=== PATIENT | female | born 1950 | race Caucasian/White ===

== ENCOUNTER → 2019-05-09 | Outpatient (CLI) | payer OTHER | END | disposition home or self-care (01) | LOC: RAH 08:32 | PROVIDERS: ATTEND Family Medicine | DX: Z13.6 Encounter for screening for cardiovascular disorders (principal); K76.89 Other specified diseases of liver | CPT/HCPCS: 75571 ==

== ENCOUNTER → 2019-08-08 | Outpatient (CLI) | payer MEDICARE ==
[~2019-08-08] MED LIST: ASPI-1005 PO; ASPI-891 PO; FURO20TA6 PO; HYDR12.54 PO; LEVO75 PO; LOSA100T58 PO; METO-408 PO; METO25 PO; ROSU20TA31 PO; TRAM50TA4 PO
== END | disposition home or self-care (01) ==
LOC: SHCH 15:28
PROVIDERS: ATTEND Internal Medicine Cardiovascular Disease
DX: R01.1 Cardiac murmur, unspecified (principal)
CPT/HCPCS: 93306

== ENCOUNTER → 2019-08-15 | Outpatient (CLI) | payer MEDICARE | END | disposition home or self-care (01) | LOC: SHCH 13:35 | PROVIDERS: ATTEND Internal Medicine Cardiovascular Disease | DX: R09.89 Other specified symptoms and signs involving the circulatory and respiratory systems (principal) | CPT/HCPCS: 93880; 93925 ==

== ENCOUNTER → 2019-08-16 | Outpatient (CLI) | payer MEDICARE ==
[~2019-08-16] MED LIST changes: -ASPI-1005 PO; -ASPI-891 PO; -FURO20TA6 PO; -HYDR12.54 PO; -LEVO75 PO; -LOSA100T58 PO; -METO-408 PO; -METO25 PO; +REGADENOSON 0.4 MG/5 ML PF SYG IVP SCH; -ROSU20TA31 PO; -TRAM50TA4 PO
== END | disposition home or self-care (01) ==
LOC: SHCH 09:03
PROVIDERS: ATTEND Internal Medicine Cardiovascular Disease
DX: I10 Essential (primary) hypertension (principal); R01.1 Cardiac murmur, unspecified; I51.7 Cardiomegaly; R09.89 Other specified symptoms and signs involving the circulatory and respiratory systems; R94.31 Abnormal electrocardiogram [ECG] [EKG]
CPT/HCPCS: 78452; 93017; 96374; A9500 ×2; J2785

== ENCOUNTER 2019-09-03 09:34 | Day surgery (SDC) | payer MEDICARE ==
[2019-09-03] VITALS (9 sets, daily range): BP systolic 100–128; BP diastolic 68–75
[2019-09-03 10:35] LABS: BASOPHILS % (AUTO) 0.6 % (0.0-5.0); EOSINOPHILS % (AUTO) 2.4 % (0.0-8.0); HEMATOCRIT 33.9 % (36-48); LYMPHOCYTES % (AUTO) 29.8 % (21.0-51.0); MEAN CORPUSCULAR HEMOGLOBIN 29.9 pg (27.0-33.0); MEAN CORPUSCULAR HGB CONC 32.2 g/dL (32.0-36.0); MEAN CORPUSCULAR VOLUME 92.9 fL (79-99); NEUTROPHILS % (AUTO) 59.8 % (40.0-77.0); PLATELET COUNT (AUTO) 221 K/uL (130-400); RED BLOOD CELL COUNT(AUTO) 3.65 MIL/uL (4.00-5.50); RED CELL DISTRIBUTION WIDTH 12.7 % (11.0-15.5); WHITE BLOOD COUNT (AUTO) 5.4 K/uL (4.8-10.8)
[2019-09-03 10:39] LABS: APPEARANCE,URINE Cloudy (CLEAR); BILIRUBIN,URINE Negative (NEGATIVE); COLOR,URINE Yellow (YELLOW); GLUCOSE, URINE (UA) Negative (NEGATIVE); KETONES,URINE Trace mg/dL (NEGATIVE); LEUKOCYTE ESTERASE ,URINE Large (NEGATIVE); NITRATE,URINE Negative (NEGATIVE); OCCULT BLOOD,URINE Negative (NEGATIVE); PROTEIN,URINE Negative (NEGATIVE)
[2019-09-03 10:45] LABS: CREATININE 1.3 mg/dL (0.5-1.5); POTASSIUM 3.9 mmol/L (3.5-5.1); PROTHROMBIN TIME 10.8 SEC (9.6-11.6)
[2019-09-03] MEDS ORDERED: SODIUM BICARB 50MEQ 50ML VIAL ONE (11:05)
[2019-09-03] MEDS ORDERED: MIDAZOLAM HCL 1 MG/ML 2ML VIAL ONE (11:06)
[2019-09-03] MEDS ORDERED: MEPERIDINE-PF 25 MG/ML SYG ONE (11:06)
[2019-09-03] MEDS ORDERED: IOHEXOL 350 MG/ML 100ML INFUS..BTL IV ONE (11:06)
[2019-09-03] MEDS ORDERED: LIDOCAINE HCL 2% 20ML ONE (11:06)
[2019-09-03] MEDS ORDERED: HEPARIN SODIUM 1000UNIT/ML 10ML VIAL ONE (11:06)
[2019-09-03 11:09] LABS: BACTERIA,URINE Few /HPF (None Seen); RBC,URINE 0-1 /HPF (0-1); SQUAMOUS EPITHELIAL CELL,UR Moderate /HPF (0-2)
[2019-09-03] MEDS ORDERED: NITROGLYCERIN 2 MG/VIAL VIAL IV ONE (12:22)
[2019-09-03] MEDS ORDERED: IODIXANOL 320 MG/ML 100 ML VIAL ONE (12:24)
[2019-09-03] MEDS ORDERED: SODIUM CHLORIDE 0.9% 1000ML 1,000 ML IV SCH (12:58)
[2019-09-03] MEDS ORDERED: LEVO75 PO (14:02)
[2019-09-03] MEDS ORDERED: LOSA100T58 PO (14:03)
[2019-09-03] MEDS ORDERED: ROSU20TA31 PO (14:06)
[2019-09-03] MEDS ORDERED: HYDR12.54 PO (14:07)
[2019-09-03] MEDS ORDERED: METO-408 PO (14:10)
[2019-09-03] MEDS ORDERED: ASPI-1005 PO (14:11)
--- NOTE | 2019-09-03 16:55 | NUR ---
RECEIVED REPORT FROM DANYEL RN, PT RESTING FLAT IN BED SUPINE, 2 RAILS UP. NO ACTIVE BLEEDING OR HEMATOMA NOTED TO RT GROIN. PULSES PRESENT BILATERAL LOWER FEET WITH DOPPLER . VITALS IN RANGE, PT STABLE.
--- NOTE | 2019-09-03 18:00 | NUR ---
PT STABLE, NO DISTRESS. RT GROIN DRESSING D/I. NO ACTIVE BLEEDING OR HEMATOMA. INSTRUCTION GIVEN TO PT SPOUSE , BOTH VERBALIZED UNDERSTANDING. PT DRESSED WITH ASSISTANCE. IV D/C, PT TAKEN TO CAR IN WHEELCHAIR, DRIVEN HOME BY .
== END 2019-09-03 18:00 | disposition home or self-care (01) ==
LOC: DAH 09:34
PROVIDERS: ATTEND Internal Medicine Cardiovascular Disease
DX: I25.10 Atherosclerotic heart disease of native coronary artery without angina pectoris (principal); I44.7 Left bundle-branch block, unspecified; I34.0 Nonrheumatic mitral (valve) insufficiency; I10 Essential (primary) hypertension; E78.5 Hyperlipidemia, unspecified; E03.9 Hypothyroidism, unspecified; Z90.710 Acquired absence of both cervix and uterus; Z90.89 Acquired absence of other organs; Z79.899 Other long term (current) drug therapy; Z79.01 Long term (current) use of anticoagulants
CPT/HCPCS: 36415; 71045; 80048; 81001; 85025; 85610; 85730; 87088; 93005; 93458; A4215; A4216; A4221; A4222; A4223 ×3; A4335; A4606; A4663; C1760; C1894; J1644; J3490 ×3; Q9965; Q9967 ×2; J2175; J2250

== ENCOUNTER 2019-09-11 08:00 | Inpatient (IN) | payer MEDICARE ==
[2019-09-10 12:38] LABS: BASOPHILS % (AUTO) 0.5 % (0.0-5.0); EOSINOPHILS % (AUTO) 2.5 % (0.0-8.0); HEMATOCRIT 33.6 % (36-48); LYMPHOCYTES % (AUTO) 28.1 % (21.0-51.0); MEAN CORPUSCULAR HEMOGLOBIN 29.8 pg (27.0-33.0); MEAN CORPUSCULAR HGB CONC 32.1 g/dL (32.0-36.0); MEAN CORPUSCULAR VOLUME 92.6 fL (79-99); MONOCYTES % (AUTO) 7.4 % (3.0-13.0); NEUTROPHILS % (AUTO) 61.2 % (40.0-77.0); PLATELET COUNT (AUTO) 209 K/uL (130-400); RED BLOOD CELL COUNT(AUTO) 3.63 MIL/uL (4.00-5.50); RED CELL DISTRIBUTION WIDTH 12.5 % (11.0-15.5)
[2019-09-10 12:50] LABS: INR 1.04 (0.85-1.15); PARTIAL THROMBOPLASTIN TIME 31.1 SEC (26.3-35.5); PROTHROMBIN TIME 11.2 SEC (9.6-11.6)
[2019-09-10 12:54] LABS: HEMOGLOBIN A1C 5.5 % (4.0-6.0)
[2019-09-10 12:55] LABS: ALBUMIN 3.8 g/dL (3.5-5.0); BILIRUBIN,TOTAL 0.3 mg/dL (0.2-1.0); CREATININE 1.3 mg/dL (0.5-1.5); POTASSIUM 4.1 mmol/L (3.5-5.1); TOTAL PROTEIN, SERUM 7.4 g/dL (6.0-8.3)
[2019-09-10 15:11] VITALS: BP 141/79
[~2019-09-11] VITALS: Ht 165.1 cm; Wt 92.1 kg
[~2019-09-11 08:00] MED LIST changes: +ASPI-1005 PO; +CEFAZOLIN SODIUM 1 GM VIAL IVP SCH; +HYDR12.54 PO; +LEVO75 PO; +LOSA100T58 PO; +METO-408 PO; -REGADENOSON 0.4 MG/5 ML PF SYG IVP SCH; +ROSU20TA31 PO
[2019-09-13] VITALS (21 sets, daily range): BP systolic 92–167; BP diastolic 27–93
[2019-09-13] MEDS: CEFAZOLIN SODIUM 1 GM VIAL IVP SCH ×2 (06:00→07:30)
[2019-09-13] MEDS ORDERED: SODIUM CHLORIDE 0.9% 1000ML 1,000 ML IV ONE (06:03)
[2019-09-13] MEDS ORDERED: AMINOCAPROIC ACID 15,000 MG in SODIUM CHLORIDE 0.9% 500ML 500 ML IV PRN (06:15)
[2019-09-13] MEDS ORDERED: EPINEPHRINE 10 MG in SODIUM CHLORIDE 0.9% 240 ML IV PRN (06:15)
[2019-09-13] MEDS ORDERED: NOREPINEPHRINE BITARTRATE 8 MG in DEXTROSE 5%-WATER 250 ML IV PRN (06:15)
[2019-09-13] MEDS ORDERED: PAPAVERINE HCL 30 MG/ML 2ML VIAL ONE (06:29)
[2019-09-13] MEDS ORDERED: CEFAZOLIN SODIUM 1 GM VIAL ONE (06:29)
[2019-09-13] MEDS ORDERED: NITROGLYCERIN 50 MG/D5% WATER 1 BOT ONE (06:36)
--- NOTE | 2019-09-13 06:40 | NUR ---
POTENTIAL FOR INFECTION: CLIPPED PER ORDERS OF DR. Antonio LYON PER MINOO ANTHONY, FOLLOWED BY WIPING WITH ROBIN: 2% CHLORHEXIDINE GLUCONATE CLOTH PATIENTS PRE-OP SKIN PREP.
[2019-09-13] MEDS ORDERED: ROCURONIUM 10MG/1ML SYR 10 MG/ML ML ONE ×2 (07:04→07:41)
[2019-09-13] MEDS ORDERED: SODIUM BICARB 8.4% 50ML SYRINGE ONE (07:04)
[2019-09-13] MEDS ORDERED: LIDOCAINE PF 2% 5ML ABBOJECT ONE (07:40)
[2019-09-13] MEDS ORDERED: FENTANYL CITRATE PF 50 MCG/1 ML 20ML VIAL IJ ONE (07:40)
[2019-09-13] MEDS ORDERED: HEPARIN SODIUM 1000UNIT/ML 10ML VIAL ONE ×2 (07:40→07:58)
[2019-09-13] MEDS ORDERED: PROPOFOL 10 MG/ML 20ML VIAL IV ONE (07:40)
[2019-09-13] MEDS ORDERED: ESMOLOL HCL 10 MG/ML 10 ML VIAL ONE (07:40)
[2019-09-13] MEDS ORDERED: SODIUM BICARB 50MEQ 50ML VIAL ONE (07:40)
[2019-09-13] MEDS ORDERED: PROTAMINE SULFATE 10 MG/ML 25ML VIAL IV ONE (07:40)
[2019-09-13] MEDS ORDERED: EPINEPHRINE 1 MG/ML AMPULE ONE (07:40)
[2019-09-13] MEDS ORDERED: NOREPINEPHRINE BITARTRATE 1 MG/1 ML ML IV ONE (07:40)
[2019-09-13] MEDS ORDERED: MIDAZOLAM HCL 1 MG/ML 2ML VIAL ONE (07:40)
[2019-09-13] MEDS ORDERED: AMINOCAPROIC ACID 250 MG/ML 20 ML VIAL IV ONE (07:40)
[2019-09-13] MEDS ORDERED: CEFTRIAXONE SODIUM 1 GM ONE (07:44)
[2019-09-13] MEDS ORDERED: KETAMINE HCL 50MG/ML 10ML VIAL IJ ONE (07:44)
[2019-09-13 08:22] LABS: ABG BASE EXCESS 1.9 mmol/L (-2.0-3.0); ABG HCO3 25.5 mmol/L (21.0-28.0); ABG OXYGEN SATURATION 98.8 % (95.0-99.0); ABG PCO2 36 mmHg (32-45)
[2019-09-13] MEDS ORDERED: SODIUM CHLORIDE 0.9% 500ML 500 ML IV SCH (08:28)
[2019-09-13] MEDS ORDERED: INSULIN REGULAR, HUMAN 3ML 100 UNIT in SODIUM CHLORIDE 0.9% 99 ML IV SCH ×2 (08:30)
[2019-09-13] MEDS ORDERED: AMINOCAPROIC ACID 15,000 MG in SODIUM CHLORIDE 0.9% 250 ML IV SCH (08:30)
[2019-09-13] MEDS ORDERED: ALBUMIN (HUMAN) 5% 250 ML IV PRN (08:30)
[2019-09-13] MEDS ORDERED: ACETAMINOPHEN 325 MG TAB PO PRN (08:30)
[2019-09-13] MEDS ORDERED: MORPHINE SULFATE 2 MG/ML 1ML SYG IV PRN (08:30)
[2019-09-13] MEDS ORDERED: NITROGLYCERIN 50 MG/D5% WATER 250 BOT IV SCH (08:30)
[2019-09-13] MEDS ORDERED: POTASSIUM PHOS 15 mMOL+NS250ML 250 ML IV PRN (08:30)
[2019-09-13] MEDS ORDERED: ACETAMINOPHEN 650 MG SUPPOSITORY RC PRN (08:30)
[2019-09-13] MEDS ORDERED: NOREPINEPHRINE 4MG/NS 250ML 250 ML IV PRN (08:30)
[2019-09-13] MEDS ORDERED: TRAMADOL HCL 50 MG TABLET PO PRN (08:30)
[2019-09-13] MEDS ORDERED: EPINEPHRINE 10 MG in DEXTROSE 5%-WATER 250 ML IV PRN (08:30)
[2019-09-13] MEDS ORDERED: DEXTROSE 50%-WATER 50 ML DISP.SYRIN IV PRN (08:30)
[2019-09-13] MEDS ORDERED: GLUCAGON 1MG KIT 1 MG ML IM PRN (08:30)
[2019-09-13] MEDS ORDERED: CALCIUM GLUCONATE 1 GM in SODIUM CHLORIDE 0.9% 50 ML IV PRN (08:30)
[2019-09-13] MEDS ORDERED: MORPHINE SULFATE 4 MG/1ML SYG IV PRN (08:30)
[2019-09-13] MEDS ORDERED: MAGNESIUM 2GM PREMIX 50ML 50 ML IV PRN (08:30)
[2019-09-13] MEDS ORDERED: SODIUM CHLORIDE 0.9% 10 ML VIAL IVP PRN (08:30)
[2019-09-13] MEDS ORDERED: PROPOFOL 1000 MG/100 ML 100 ML IV PRN (08:30)
[2019-09-13] MEDS ORDERED: SODIUM CHLORIDE 0.9% 1000ML 1,000 ML IV SCH (08:30)
[2019-09-13] MEDS ORDERED: ONDANSETRON HCL 4 MG/2 ML VIAL IV PRN (08:30)
[2019-09-13] MEDS: LEVOTHYROXINE 75 MCG TABLET PO SCH (09:00)
[2019-09-13] MEDS: FAMOTIDINE/PF 20 MG/2 ML VIAL IV SCH ×2 (09:00→20:53)
[2019-09-13] MEDS: ASPIRIN 81 MG EC TAB PO SCH (09:00)
[2019-09-13] MEDS ORDERED: AMIODARONE HCL 50 MG/ML 3 ML VIAL ONE (09:24)
[2019-09-13 10:15] LABS: ABG OXYGEN SATURATION 98.3 % (95.0-99.0); ABG PCO2 35 mmHg (32-45)
[2019-09-13] MEDS ORDERED: POTASSIUM CHLORIDE 20MEQ/100ML 100 ML IV ONE (10:21)
--- NOTE | 2019-09-13 11:18 | NUR ---
POST OP Received pt immediately post op. Intubated/sedated. Vent settings as recorded. Not yet responsive to stimulation. VS/hemodynamics as recorded. Received pt on IV levophed gtt @5mcg/min, epinephrine gtt @ 0.05mcg/kg/min, amicar @50ml/hr. Right IJ CVP line in use. Sternal drsg clean, dry. Chest support in use. CT's x2 patent - no evidence of air leak/SQ emphysema. CT's to 20cm suction - sanguineous drainage. Abd round, soft - absent bowel sounds. OGT to LIS - placement verified on post op CXR. F/C patent - clear yellow urine. TRACY bandage/surgical drsg to LLE clean, dry. Left radial arterial line patent. PIV to JANNY patent. Assessment completed/recorded.
[2019-09-13 11:34] LABS: ABG BASE EXCESS -3.6 mmol/L (-2.0-3.0); ABG HCO3 21.1 mmol/L (21.0-28.0); ABG OXYGEN SATURATION 98.6 % (95.0-99.0); ABG PCO2 37 mmHg (32-45)
[2019-09-13 11:34] LABS: HEMATOCRIT 30.2 % (36-48); MEAN CORPUSCULAR HEMOGLOBIN 29.6 pg (27.0-33.0); MEAN CORPUSCULAR HGB CONC 32.5 g/dL (32.0-36.0); MEAN CORPUSCULAR VOLUME 91.2 fL (79-99); RED BLOOD CELL COUNT(AUTO) 3.31 MIL/uL (4.00-5.50); RED CELL DISTRIBUTION WIDTH 12.6 % (11.0-15.5); WHITE BLOOD COUNT (AUTO) 18.7 K/uL (4.8-10.8)
[2019-09-13 11:52] LABS: INR 1.16 (0.85-1.15); PARTIAL THROMBOPLASTIN TIME 28.9 SEC (26.3-35.5); PROTHROMBIN TIME 12.5 SEC (9.6-11.6)
[2019-09-13 11:56] LABS: CREATININE 1.2 mg/dL (0.5-1.5); MAGNESIUM 1.7 mg/dL (1.80-2.40); PHOSPHORUS 3.7 mg/dL (2.5-4.9); POTASSIUM 3.4 mmol/L (3.5-5.1)
[2019-09-13] MEDS: SODIUM BICARB 50MEQ 50ML VIAL IV PRN ×4 (12:02→16:16)
[2019-09-13] MEDS: POTASSIUM CHLORIDE 20MEQ/100ML 100 ML IV PRN ×3 (12:02→16:02)
--- NOTE | 2019-09-13 12:50 | NUR ---
STATUS Arousable with verbal stimulation. Focuses and follows commands. Reoriented/reassured. Pt is in no apparent distress.
--- NOTE | 2019-09-13 13:45 | NUR ---
PATIENT AWAKE. PATIENT FOLLOWS SIMPLE COMMANDS. PATIENT ABLE TO MOVE ALL EXTREMITIES. PLAN TO START VENTILATOR WEANING TRIALS.
--- NOTE | 2019-09-13 13:55 | NUR ---
PATIENT STARTED ON VENTILATOR WEANING TRIALS. SIMV DROPPED RATE TO 6.
--- NOTE | 2019-09-13 14:05 | NUR ---
PATIENT STARTED ON CPAP 10/.5 40%. TOLERATING WELL.
--- NOTE | 2019-09-13 14:20 | NUR ---
CPAP 8/5 40%. TOLERATING WELL.
[2019-09-13 14:31] LABS: ABG BASE EXCESS -0.3 mmol/L (-2.0-3.0); ABG HCO3 24.4 mmol/L (21.0-28.0); ABG OXYGEN SATURATION 97.4 % (95.0-99.0); ABG PCO2 40 mmHg (32-45)
--- NOTE | 2019-09-13 14:40 | NUR ---
PATIENT EXTUBATED AFTER SUCCESSFUL VENTILATOR WEANING TRIALS. PATIENT ON AEROSOL MASK 40%. TOLERATING WELL.
[2019-09-13] MEDS: CEFAZOLIN SODIUM 1 GM VIAL IV SCH ×2 (14:58→20:54)
[2019-09-13 16:11] LABS: ABG HCO3 23.4 mmol/L (21.0-28.0); ABG PCO2 47 mmHg (32-45)
[2019-09-13 16:18] LABS: HEMATOCRIT 30.1 % (36-48); MEAN CORPUSCULAR HEMOGLOBIN 29.5 pg (27.0-33.0); MEAN CORPUSCULAR HGB CONC 32.2 g/dL (32.0-36.0); MEAN CORPUSCULAR VOLUME 91.5 fL (79-99); PLATELET COUNT (AUTO) 257 K/uL (130-400); RED BLOOD CELL COUNT(AUTO) 3.29 MIL/uL (4.00-5.50); RED CELL DISTRIBUTION WIDTH 12.7 % (11.0-15.5); WHITE BLOOD COUNT (AUTO) 16.5 K/uL (4.8-10.8)
[2019-09-13] MEDS: KETOROLAC TROMETHAMINE 15MG/ML IV SCH ×2 (16:30→20:54)
[2019-09-13] MEDS ORDERED: KETOROLAC TROMETHAMINE 15MG/ML ONE (16:35)
[2019-09-13 16:44] LABS: CREATININE 1.5 mg/dL (0.5-1.5); MAGNESIUM 2.7 mg/dL (1.80-2.40); POTASSIUM 3.7 mmol/L (3.5-5.1)
[2019-09-13 16:56] LABS: BAND NEUTROPHILS % (MANUAL) 9 % (0-2); LYMPHOCYTES % (MANUAL) 7 % (22-44); MAN.DIFF COMMENT-IMPRESSION MANUAL DIFFERENTIAL; MONOCYTES % (MANUAL) 8 % (2-9); REACTIVE LYMPHOCYTES 2 % (0-0); SEGMENTED NEUTROPHILS % 74 % (40-70)
[2019-09-13 17:01] LABS: PLATELET MORPHOLOGY COMMENT PLT CLUMPS PRESENT
--- NOTE | 2019-09-13 17:30 | NUR ---
FAMILY UPDATE Spoke to pt's spouse by phone - updated.
--- NOTE | 2019-09-13 18:33 | NUR ---
TRANSFER Transferred by bed to ICU room 16.
[2019-09-13] MEDS: ATORVASTATIN CALCIUM 40 MG TABLET PO SCH (20:53)
[2019-09-14] VITALS (24 sets, daily range): BP systolic 88–137; BP diastolic 44–59
[2019-09-14 04:20] LABS: ABG BASE EXCESS 2.9 mmol/L (-2.0-3.0); ABG HCO3 27.6 mmol/L (21.0-28.0); ABG OXYGEN SATURATION 96.7 % (95.0-99.0); ABG PCO2 43 mmHg (32-45)
[2019-09-14 04:22] LABS: HEMATOCRIT 25.4 % (36-48); MEAN CORPUSCULAR HEMOGLOBIN 29.4 pg (27.0-33.0); MEAN CORPUSCULAR HGB CONC 32.3 g/dL (32.0-36.0); RED BLOOD CELL COUNT(AUTO) 2.79 MIL/uL (4.00-5.50); RED CELL DISTRIBUTION WIDTH 13.3 % (11.0-15.5); WHITE BLOOD COUNT (AUTO) 11.2 K/uL (4.8-10.8)
[2019-09-14 04:34] LABS: CREATININE 1.4 mg/dL (0.5-1.5); MAGNESIUM 2.4 mg/dL (1.80-2.40); PHOSPHORUS 3.7 mg/dL (2.5-4.9); POTASSIUM 4.3 mmol/L (3.5-5.1)
[2019-09-14 04:39] LABS: INR 1.09 (0.85-1.15); PARTIAL THROMBOPLASTIN TIME 31.6 SEC (26.3-35.5); PROTHROMBIN TIME 11.7 SEC (9.6-11.6)
[2019-09-14] MEDS: KETOROLAC TROMETHAMINE 15MG/ML IV SCH (06:10)
[2019-09-14] MEDS: CEFAZOLIN SODIUM 1 GM VIAL IV SCH (06:11)
[2019-09-14] MEDS ORDERED: ALBUMIN (HUMAN) 5% 500 ML IV SCH (09:45)
[2019-09-14] MEDS: FAMOTIDINE/PF 20 MG/2 ML VIAL IV SCH ×2 (09:53→21:11)
[2019-09-14] MEDS: ASPIRIN 81 MG EC TAB PO SCH (09:53)
[2019-09-14] MEDS: LEVOTHYROXINE 75 MCG TABLET PO SCH (09:54)
[2019-09-14] MEDS: FUROSEMIDE 10 MG/ML 2ML VIAL IV SCH ×2 (09:54→21:11)
[2019-09-14] MEDS: TRAMADOL HCL 50 MG TABLET PO PRN (12:42)
[2019-09-14] MEDS: ACETAMINOPHEN 325 MG TAB PO PRN (14:10)
[2019-09-14] MEDS: ATORVASTATIN CALCIUM 40 MG TABLET PO SCH (18:01)
[2019-09-15] VITALS (14 sets, daily range): BP systolic 95–144; BP diastolic 48–64
[2019-09-15 04:04] LABS: HEMATOCRIT 23.1 % (36-48); MEAN CORPUSCULAR HEMOGLOBIN 29.7 pg (27.0-33.0); MEAN CORPUSCULAR HGB CONC 31.6 g/dL (32.0-36.0); MEAN CORPUSCULAR VOLUME 93.9 fL (79-99); RED BLOOD CELL COUNT(AUTO) 2.46 MIL/uL (4.00-5.50); RED CELL DISTRIBUTION WIDTH 14.1 % (11.0-15.5); WHITE BLOOD COUNT (AUTO) 10.6 K/uL (4.8-10.8)
[2019-09-15 04:11] LABS: CREATININE 1.9 mg/dL (0.5-1.5); POTASSIUM 3.9 mmol/L (3.5-5.1)
[2019-09-15 05:22] LABS: ABG HCO3 29.4 mmol/L (21.0-28.0); ABG OXYGEN SATURATION 96.8 % (95.0-99.0); ABG PCO2 47 mmHg (32-45)
[2019-09-15] MEDS: POTASSIUM CHLORIDE 20MEQ/100ML 100 ML IV PRN (06:42)
[2019-09-15] MEDS: FAMOTIDINE/PF 20 MG/2 ML VIAL IV SCH ×2 (08:29→20:13)
[2019-09-15] MEDS: LEVOTHYROXINE 75 MCG TABLET PO SCH (08:30)
[2019-09-15] MEDS: ASPIRIN 81 MG EC TAB PO SCH (08:30)
[2019-09-15] MEDS: FUROSEMIDE 20 MG TABLET PO SCH ×2 (08:30→17:50)
[2019-09-15] MEDS: METOPROLOL TARTRATE 25 MG TAB PO SCH ×2 (08:31→20:13)
[2019-09-15 08:37] LABS: BASOPHILS % (AUTO) 0.2 % (0.0-5.0); EOSINOPHILS % (AUTO) 0.3 % (0.0-8.0); HEMATOCRIT 24.1 % (36-48); LYMPHOCYTES % (AUTO) 8.9 % (21.0-51.0); MEAN CORPUSCULAR HEMOGLOBIN 29.6 pg (27.0-33.0); MEAN CORPUSCULAR HGB CONC 31.5 g/dL (32.0-36.0); MEAN CORPUSCULAR VOLUME 93.8 fL (79-99); MONOCYTES % (AUTO) 6.7 % (3.0-13.0); NEUTROPHILS % (AUTO) 83.5 % (40.0-77.0); PLATELET COUNT (AUTO) 142 K/uL (130-400); RED BLOOD CELL COUNT(AUTO) 2.57 MIL/uL (4.00-5.50); RED CELL DISTRIBUTION WIDTH 14.1 % (11.0-15.5); WHITE BLOOD COUNT (AUTO) 10.3 K/uL (4.8-10.8)
--- NOTE | 2019-09-15 13:00 | NUR ---
TRANSFER FROM ICU RECEIVED PT FROM ICU, A&O3, CALM COOPERATIVE AND DOES NOT APPEAR TO BE IN ANY DISTRESS NOR ANY NEURO DEFICITS PRESENT. STERNAL AND CHEST TUBE DRESSINGS DRY AND INTACT, PT RESTING COMFORTABLY, CALL LIGHT WITHIN REACH.
--- NOTE | 2019-09-15 14:00 | NUR ---
AMBULATION PT AMBULATING FROM BED TO CHAIR, GAIT SLOW BUT STEADY WITH GAIT BELT, O2SATS 95% ON ROOM AIR, TOLERATED WELL,CALL LIGHT WITHIN REACH.
--- NOTE | 2019-09-15 16:15 | NUR ---
BATHROOM PT AMBULATING FROM CHAIR TO BATHROOM AND BACK TO BED, GAIT SLOW BUT STEADY WITH GAIT BELT AND ASSIST. O2 SATS 93%, TOLERATING WELL, PT DENIES DIZZINESS OR LIGHTHEADEDNESS. CALL LIGHT WITHIN REACH.
--- NOTE | 2019-09-15 18:30 | NUR ---
INITIAL CM MET WITH PATIENT AT BEDSIDE PATIENT S/P CABG, POD #2, STATES LIVES WITH SPOUSE, WHO IS WELL AND CAN ASSIST WITH ANY POST OP CAR- NO DME NEEDED PRIOR TO THE SURGERY- HAS A SHOWER CHAIR AND HAND, HOME SAFE AND ACCESSIBLE, PREVIOUSLY DROVE, WAS INDP IN ALL ADLS, DCP IS HOME
[2019-09-15] MEDS: TRAMADOL HCL 50 MG TABLET PO PRN (20:14)
[2019-09-15] MEDS: ATORVASTATIN CALCIUM 40 MG TABLET PO SCH (20:14)
[2019-09-15] MEDS: ENOXAPARIN SODIUM 30 MG/0.3 ML SQ SCH (20:14)
[2019-09-16 03:00] VITALS: BP 102/53
[2019-09-16 05:43] LABS: HEMATOCRIT 22.9 % (36-48); MEAN CORPUSCULAR HEMOGLOBIN 29.2 pg (27.0-33.0); MEAN CORPUSCULAR VOLUME 94.2 fL (79-99); RED BLOOD CELL COUNT(AUTO) 2.43 MIL/uL (4.00-5.50); RED CELL DISTRIBUTION WIDTH 13.6 % (11.0-15.5); WHITE BLOOD COUNT (AUTO) 8.2 K/uL (4.8-10.8)
[2019-09-16 06:03] LABS: POTASSIUM 4.3 mmol/L (3.5-5.1)
[2019-09-16 08:13] VITALS: BP 137/79
[2019-09-16] MEDS ORDERED: ENOXAPARIN SODIUM 30 MG/0.3 ML SQ SCH (09:00)
[2019-09-16] MEDS: LEVOTHYROXINE 75 MCG TABLET PO SCH (09:15)
[2019-09-16] MEDS: ASPIRIN 81 MG EC TAB PO SCH (09:16)
[2019-09-16] MEDS: METOPROLOL TARTRATE 25 MG TAB PO SCH ×2 (09:17→20:26)
[2019-09-16] MEDS: DOCUSATE SODIUM 100 MG CAP PO SCH ×2 (09:17→20:26)
[2019-09-16] MEDS: FAMOTIDINE 20MG TAB 20 MG TAB PO SCH (09:18)
[2019-09-16 11:47] VITALS: BP 107/71
[2019-09-16 16:23] VITALS: BP 113/71
[2019-09-16 20:00] VITALS: BP 122/76
[2019-09-16] MEDS: ATORVASTATIN CALCIUM 40 MG TABLET PO SCH (20:26)
[2019-09-16] MEDS: ENOXAPARIN SODIUM 30 MG/0.3 ML SQ SCH (20:26)
[2019-09-16 23:56] VITALS: BP 125/73
[2019-09-17 04:00] VITALS: BP 116/68
[2019-09-17 05:38] LABS: HEMATOCRIT 23.5 % (36-48); MEAN CORPUSCULAR HEMOGLOBIN 29.1 pg (27.0-33.0); MEAN CORPUSCULAR HGB CONC 31.5 g/dL (32.0-36.0); MEAN CORPUSCULAR VOLUME 92.5 fL (79-99); RED BLOOD CELL COUNT(AUTO) 2.54 MIL/uL (4.00-5.50); RED CELL DISTRIBUTION WIDTH 13.2 % (11.0-15.5); WHITE BLOOD COUNT (AUTO) 7.1 K/uL (4.8-10.8)
[2019-09-17 05:57] LABS: CREATININE 1.7 mg/dL (0.5-1.5); POTASSIUM 4.4 mmol/L (3.5-5.1)
--- NOTE | 2019-09-17 07:45 | NUR ---
AM ASSESSMENT PT LAYING IN BED, HOB ELEVATED 30 DEGREES, RESTING. SAD. A/O X 3. NO SOB. NO DISTRESS NOTED. DENIES CHEST PAIN OR DISCOMFORT. DENIES PALPITATIONS. DENIES INCISIONAL PAIN. C/O HEADACHE. PO PAIN MED TO BE GIVEN. TELE: SR. DENIES N/V AND/OR DIARRHEA. STERNAL INCISION WELL APPROX, NO DRAINAGE NOTED. LLE INCISIONS WELL APPROX, NO DRAINAGE NOTED. STERNAL PRECAUTIONS REINFORCED. IS [phone]. IS PURPOSE & IMPORTANCE REINFORCED. UP W/ASSISTANCE. INSTRUCTED TO CALL FOR ASSISTANCE. CALL ISAK W/IN REACH.
[2019-09-17] MEDS: FAMOTIDINE 20MG TAB 20 MG TAB PO SCH (08:15)
[2019-09-17] MEDS: METOPROLOL TARTRATE 25 MG TAB PO SCH (08:17)
[2019-09-17] MEDS: DOCUSATE SODIUM 100 MG CAP PO SCH (08:17)
[2019-09-17] MEDS: LEVOTHYROXINE 75 MCG TABLET PO SCH (08:17)
[2019-09-17] MEDS: ACETAMINOPHEN 325 MG TAB PO PRN (08:23)
[2019-09-17 08:28] VITALS: BP 136/73
[2019-09-17] MEDS ORDERED: ASPIRIN 325MG EC TAB 325 MG TABLET.DR PO SCH (09:00)
[2019-09-17] MEDS ORDERED: METO25 PO (10:57)
[2019-09-17] MEDS ORDERED: TRAM50TA4 PO (10:57)
[2019-09-17] MEDS ORDERED: ASPI-891 PO (10:57)
[2019-09-17] MEDS ORDERED: FURO20TA6 PO (10:57)
[2019-09-17 12:09] VITALS: BP 113/74
--- NOTE | 2019-09-17 13:30 | NUR ---
DISCHARGE VERBAL & WRITTEN DISCHARGE INSTRUCTIONS REVIEWED & GIVEN TO PT. QUESTIONS ENCOURAGED & CLARIFIED. PROPER CARE & ACTIVITY AFTER CABG REVIEWED. NEW PRESCRIBED MEDICATIONS REVIEWED. PT INFORMED PRESCRIPTION TRANSMITTED TO PHARMACY IN FILE. DC'D MEDICATIONS REVIEWED W/PT. PT INFORMED TO HAVE BMP DRAWN IN 1 WEEK @ [facility]. TELE MANI REMOVED. IV DC'D. PT TO GATHER PERSONAL BELONGINGS & NOTIFY FAMILY PT MAY BE PICKED UP FROM HOSPITAL TO TAKE HOME.
--- NOTE | 2019-09-17 14:10 | NUR ---
DISCHARGE FAMILY HERE TO TAKE PT HOME. PT TAKEN TO PRIVATE VEHICLE VIA WC BY Johnathon PALENCIA PCP. NO DISTRESS NOTED.
== END 2019-09-17 14:20 | disposition home or self-care (01) | DRG 235 ==
LOC: EDSTATUS 11:39 → DAHIP 09-13 05:44 → PAH.CVR 09-13 10:34 → DAHIP 09-13 18:32 → 4DH 09-15 11:59
PROVIDERS: ADMIT Thoracic Surgery (Cardiothoracic Vascular Surgery); ATTEND Thoracic Surgery (Cardiothoracic Vascular Surgery)
PROC: 06BQ4ZZ Excision of Left Saphenous Vein, Percutaneous Endoscopic Approach (ICD-10-PCS; 2019-09-13)
PROC: 02100Z9 Bypass Coronary Artery, One Artery from Left Internal Mammary, Open Approach (ICD-10-PCS; principal; 2019-09-13 07:38)
PROC: 021109W Bypass Coronary Artery, Two Arteries from Aorta with Autologous Venous Tissue, Open Approach (ICD-10-PCS; 2019-09-13 07:38)
DX: I25.10 Atherosclerotic heart disease of native coronary artery without angina pectoris (principal); I50.43 Acute on chronic combined systolic (congestive) and diastolic (congestive) heart failure; N17.9 Acute kidney failure, unspecified; J98.11 Atelectasis; D62 Acute posthemorrhagic anemia; E03.9 Hypothyroidism, unspecified; E78.00 Pure hypercholesterolemia, unspecified; E78.5 Hyperlipidemia, unspecified; I08.0 Rheumatic disorders of both mitral and aortic valves; I25.5 Ischemic cardiomyopathy; I73.9 Peripheral vascular disease, unspecified; I95.9 Hypotension, unspecified; E87.70 Fluid overload, unspecified; R06.89 Other abnormalities of breathing; E66.9 Obesity, unspecified; Z68.33 Body mass index [BMI] 33.0-33.9, adult; Z79.82 Long term (current) use of aspirin; Z79.899 Other long term (current) drug therapy; Z90.710 Acquired absence of both cervix and uterus; Z82.49 Family history of ischemic heart disease and other diseases of the circulatory system; I11.0 Hypertensive heart disease with heart failure
CPT/HCPCS: 36415; 71045; 71046; 80048; 80053; 80061; 82330; 82435; 82803; 82947; 82948; 83036; 83605; 83735; 84100; 84132; 84295; 85018; 85025; 85027; 85347; 85610; 85730; 86850; 86900; 86901; 86922; 93005; 93880; 94002; 94010; 94150; 97039; A4357; A7048; G0378; J0171; J0282; J0610; J0690; J0696; J1644; J1650; J1815; J1885; J1940; J2001; J2250; J2405; J2440; J2704; J2720; J3010; J3475; J3480; J3490; J7030; J7040; P9045

== ENCOUNTER → 2020-05-04 | Outpatient (CLI) | payer MEDICARE ==
[~2020-05-04] MED LIST changes: -ASPI-1005 PO; +ASPI-891 PO; -CEFAZOLIN SODIUM 1 GM VIAL IVP SCH; +FURO20TA6 PO; -HYDR12.54 PO; -LOSA100T58 PO; -METO-408 PO; +METO25 PO; +TRAM50TA4 PO
== END | disposition home or self-care (01) ==
LOC: SHCH 14:22
PROVIDERS: ATTEND Internal Medicine Cardiovascular Disease
DX: I25.5 Ischemic cardiomyopathy (principal)
CPT/HCPCS: 93306; 93356

== ENCOUNTER → 2021-06-04 | Outpatient (CLI) | payer MEDICARE ==
[~2021-06-04] VITALS: Ht 170.2 cm; Wt 89.4 kg
[2021-06-04] MEDS: REGADENOSON 0.4 MG/5 ML PF SYG IVP SCH (14:16)
== END | disposition home or self-care (01) ==
LOC: SHCH 07:43
PROVIDERS: ATTEND Internal Medicine Cardiovascular Disease
DX: I10 Essential (primary) hypertension (principal); R94.39 Abnormal result of other cardiovascular function study; R06.09 Other forms of dyspnea
CPT/HCPCS: 78452; 93017; 96374; A9500 ×2; J2785

== ENCOUNTER 2021-07-26 08:51 | Day surgery (SDC) | payer MEDICARE ==
[2021-07-22 13:49] LABS: HEMATOCRIT 39.3 % (36-48); MEAN CORPUSCULAR VOLUME 93.6 fL (79-99); PLATELET COUNT (AUTO) 232 K/uL (130-400); RED CELL DISTRIBUTION WIDTH 14.6 % (11.0-15.5); WHITE BLOOD COUNT (AUTO) 6.1 K/uL (4.8-10.8)
[2021-07-22 13:52] LABS: APPEARANCE,URINE Clear (CLEAR); BILIRUBIN,URINE Negative (NEGATIVE); COLOR,URINE Yellow (YELLOW); GLUCOSE, URINE (UA) Negative (NEGATIVE); KETONES,URINE Trace mg/dL (NEGATIVE); LEUKOCYTE ESTERASE ,URINE Moderate (NEGATIVE); NITRATE,URINE Negative (NEGATIVE); OCCULT BLOOD,URINE Negative (NEGATIVE); PH,URINE 5.5 (5.0-8.0); PROTEIN,URINE Negative (NEGATIVE)
[2021-07-22 13:58] LABS: INR 1.05 (0.85-1.15); PROTHROMBIN TIME 11.4 SEC (9.6-11.6)
[2021-07-22 13:59] LABS: PARTIAL THROMBOPLASTIN TIME 32.5 SEC (26.3-35.5)
[2021-07-22 14:00] LABS: CREATININE 1.3 mg/dL (0.5-1.5); POTASSIUM 4.5 mmol/L (3.5-5.1)
[2021-07-22 14:25] LABS: BACTERIA,URINE Rare /HPF (None Seen); RBC,URINE 0-1 /HPF (0-1); SQUAMOUS EPITHELIAL CELL,UR Rare /HPF (0-2); WBC,URINE 0-1 /HPF (0-1)
[2021-07-22 14:28] LABS: BASOPHILS % (MANUAL) 2 % (0-2); EOSINOPHILS % (MANUAL) 2 % (1-6); LYMPHOCYTES % (MANUAL) 31 % (22-44); MAN.DIFF COMMENT-IMPRESSION MANUAL DIFFERENTIAL; MONOCYTES % (MANUAL) 4 % (2-9); PLATELET MORPHOLOGY COMMENT ADEQUATE; SEGMENTED NEUTROPHILS % 61 % (40-70)
[2021-07-26] VITALS (9 sets, daily range): BP systolic 129–161; BP diastolic 72–89
[~2021-07-26] VITALS: Ht 170.2 cm; Wt 88.5 kg
[~2021-07-26 08:51] MED LIST changes: +0.9%NACL 1000ML 1,000 ML IV SCH; +ASPI-1012 PO; -ASPI-891 PO; +EZET10TA48 PO; -FURO20TA6 PO; +LOSA50TA64 PO; -ROSU20TA31 PO; -TRAM50TA4 PO
[2021-07-26] MEDS ORDERED: CEPH500C2 PO (10:42)
[2021-07-26] MEDS ORDERED: SODIUM BICARB 50MEQ 50ML VIAL 50 ML ONE (14:16)
[2021-07-26] MEDS ORDERED: LIDOCAINE HCL 1% 20 ML VIAL ONE (14:16)
[2021-07-26] MEDS ORDERED: IOHEXOL-350 50ML VIAL IV ONE (14:16)
[2021-07-26] MEDS ORDERED: IOHEXOL 350 MG/ML 100ML INFUS..BTL IV ONE (14:17)
[2021-07-26] MEDS ORDERED: MEPERIDINE-PF 25 MG/ML SYG ONE (14:17)
[2021-07-26] MEDS ORDERED: MIDAZOLAM HCL 1 MG/ML 2ML VIAL ONE (14:18)
[2021-07-26] MEDS ORDERED: NITROGLYCERIN 50MG VIAL ONE (14:18)
[2021-07-26] MEDS ORDERED: 0.9%NACL 1000ML 1,000 ML IV SCH (15:00)
== END 2021-07-26 19:20 | disposition home or self-care (01) ==
LOC: DAH 08:51
PROVIDERS: ATTEND Internal Medicine Cardiovascular Disease
DX: I25.119 Atherosclerotic heart disease of native coronary artery with unspecified angina pectoris (principal); I25.719 Atherosclerosis of autologous vein coronary artery bypass graft(s) with unspecified angina pectoris; I25.82 Chronic total occlusion of coronary artery; I11.0 Hypertensive heart disease with heart failure; I50.42 Chronic combined systolic (congestive) and diastolic (congestive) heart failure; I73.9 Peripheral vascular disease, unspecified; Z90.89 Acquired absence of other organs; Z90.710 Acquired absence of both cervix and uterus; Z95.1 Presence of aortocoronary bypass graft; Z82.49 Family history of ischemic heart disease and other diseases of the circulatory system; Z79.01 Long term (current) use of anticoagulants; Z79.899 Other long term (current) drug therapy; Z98.890 Other specified postprocedural states
CPT/HCPCS: 36415; 80048; 81001; 85025; 85610; 85730; 87088; 93005; 93459; A4215; A4216; A4221; A4222; A4223 ×3; A4606; A4663; C1760; C1894; J1644; J2175; J2250; J3490 ×2; J7030; Q9965; Q9967 ×2; 96360; 96361; 99156; 99157

== ENCOUNTER → 2021-08-25 | Outpatient (CLI) | payer MEDICARE ==
[~2021-08-25] MED LIST changes: -0.9%NACL 1000ML 1,000 ML IV SCH; +ALBUTEROL 0.083% 2.5 MG/3 ML INH IH ONE; +CEPH500C2 PO
== END | disposition home or self-care (01) ==
LOC: RESP 10:01
PROVIDERS: ATTEND Internal Medicine Cardiovascular Disease
DX: R06.02 Shortness of breath (principal)
CPT/HCPCS: 94060; 94727; 94729

== ENCOUNTER 2022-05-07 13:49 | Emergency (ER) | payer MEDICARE, OTHER ==
[~2022-05-07] VITALS: Ht 170.2 cm; Wt 83.0 kg
[~2022-05-07 13:49] MED LIST changes: -ALBUTEROL 0.083% 2.5 MG/3 ML INH IH ONE
[2022-05-07 16:26] LABS: APPEARANCE,URINE CLEAR (CLEAR); BILIRUBIN,URINE NEGATIVE (NEGATIVE); COLOR,URINE COLORLESS (YELLOW); GLUCOSE, URINE (UA) NEGATIVE (NEGATIVE); KETONES,URINE NEGATIVE (NEGATIVE); LEUKOCYTE ESTERASE ,URINE 75 Leu/uL (NEGATIVE); NITRATE,URINE NEGATIVE (NEGATIVE); OCCULT BLOOD,URINE NEGATIVE (NEGATIVE); PROTEIN,URINE NEGATIVE (NEGATIVE); UROBILINOGEN,URINE 0.2 mg/dL (0.2-1.0)
[2022-05-07 16:52] LABS: BACTERIA,URINE RARE /HPF (None Seen); RBC,URINE 0-1 /HPF (0-1); SQUAMOUS EPITHELIAL CELL,UR RARE /HPF (0-2); WBC,URINE 0-1 /HPF (0-1)
[2022-05-07 16:56] LABS: BASOPHILS % (AUTO) 0.5 % (0.0-5.0); EOSINOPHILS % (AUTO) 2.1 % (0.0-8.0); LYMPHOCYTES % (AUTO) 24.1 % (21.0-51.0); MEAN CORPUSCULAR HEMOGLOBIN 28.8 pg (27.0-33.0); MEAN CORPUSCULAR HGB CONC 31.7 g/dL (32.0-36.0); MEAN CORPUSCULAR VOLUME 90.9 fL (79-99); MONOCYTES % (AUTO) 8.4 % (3.0-13.0); NEUTROPHILS % (AUTO) 64.7 % (40.0-77.0); PLATELET COUNT (AUTO) 192 K/uL (130-400); RED BLOOD CELL COUNT(AUTO) 3.96 MIL/uL (4.00-5.50); RED CELL DISTRIBUTION WIDTH 14.2 % (11.0-15.5); WHITE BLOOD COUNT (AUTO) 6.3 K/uL (4.8-10.8)
[2022-05-07 17:11] LABS: CREATININE 1.2 mg/dL (0.5-1.5); POTASSIUM 4.8 mmol/L (3.5-5.1)
[2022-05-07 17:17] LABS: TOTAL PROTEIN, SERUM 7.3 g/dL (6.0-8.3)
[2022-05-07 19:00] VITALS: BP 161/88
== END 2022-05-07 19:33 | disposition home or self-care (01) ==
LOC: EDH 13:49
DX: K40.90 Unilateral inguinal hernia, without obstruction or gangrene, not specified as recurrent (principal); Z79.82 Long term (current) use of aspirin; Z95.1 Presence of aortocoronary bypass graft; Z79.899 Other long term (current) drug therapy
CPT/HCPCS: 36415; 74176; 80053; 81001; 85025; 87088

== ENCOUNTER → 2024-03-06 | Outpatient (CLI) | payer OTHER ==
[~2024-03-06] MED LIST changes: +IOHEXOL 350 MG/ML 100ML INFUS..BTL IV ONE; +metoPROLOL tartRATE 1 MG/ML 5ML VIAL IV ONE
--- NOTE | 2024-03-06 14:51 | HMCIMG ---
CT CARDIAC ANGIO W/CONT. CCTA HISTORY: Chest pain COMPARISON: None TECHNIQUE: Multiple sequential axial images of the chest were obtained along with the CT angiogram of the chest study. Patient was given 100 cc of Omnipaque through intravenous route. FINDINGS: There is no evidence of pulmonary nodule or parenchymal disease. No pleural effusion or pericardial effusion is seen. There is no evidence of pneumothorax. There are normal size mediastinal and hilar lymph nodes. The heart is not enlarged. Ascending thoracic aorta is dilated measuring 4 x 3.9 cm Degenerative changes of the thoracolumbar spine are present. IMPRESSION: 1. No evidence of pulmonary nodule or effusion is seen. Please see CT angiogram report of coronary arteries.
--- NOTE | 2024-03-13 08:33 | CARDIOLOGY ---
RAD REPORT: [facility] CT ANGIO RADIOLOGY REPORT: CORONARY CT ANGIOGRAPHY DATE: Mar 13, 2024 QUALITY: Excellent CLINICAL HISTORY AND INDICATION: [ coronary artery bypass graft patency ] TECHNIQUE: After obtaining a preliminary machine setup operator image, contrast imaging performed on an [employer] [id number] scanner. A dedicated, limited window, coronary imaging protocol was used, with single breath-hold, retrospective ECG gating, and automated arrhythmia rejection. 100 cc of low osmolar contrast agent: Omnipaque 350 was delivered via a 18-gauge IV catheter in the right antecubital fossa, using a power injector and followed by 60 cc of normal saline bolus as a chaser. Collimated images were reformatted at 0.5 mm intervals, and sent to an offline independent workstation for interpretation, using 3D anatomic reconstructions: Curved multiplanar reconstructions, maximum intensity projections, and multiplan ar imaging. 5 mg IV metoprolol was administered prior to scanning. 0.8 mg SL nitroglycerin was given. CORONARY ARTERY DESCRIPTIONS: The coronary arteries arise in normal position. Left main coronary artery: Normal caliber vessel that bifurcates into the LAD and LCx. No stenosis. Left anterior descending coronary artery: Normal caliber vessel and gives rise to diagonal and septal branches. Severe stenosis of the proximal to mid LAD. Left circumflex coronary artery: Normal caliber, nondominant and gives rise to a large OM branch. VIDEO SPECIALIST of OM. Right coronary artery: Large, dominant vessel giving rise to the PL and PDA branches. VIDEO SPECIALIST mid RCA. CORONARY ARTERY BYPASS GRAFT DESCRIPTIONS: Patent VERMA to LAD. Distal to the VERMA to LAD anastomosis site, there is 30-40% stenosis. Patent SVG to OM. Occluded SVG to PDA. Mandy Palacios MD Cardiovascular Disease [facility] MANDY PALACIOS MD Mar 13, 2024 08:33
== END | disposition home or self-care (01) ==
LOC: RAH 11:12
PROVIDERS: ATTEND Internal Medicine Cardiovascular Disease
DX: I25.10 Atherosclerotic heart disease of native coronary artery without angina pectoris (principal); I77.810 Thoracic aortic ectasia; M47.815 Spondylosis without myelopathy or radiculopathy, thoracolumbar region; R07.9 Chest pain, unspecified; Z95.1 Presence of aortocoronary bypass graft
CPT/HCPCS: 75574; J3490; Q9967

== ENCOUNTER → 2024-06-14 | Outpatient (CLI) | payer OTHER ==
[~2024-06-14] MED LIST changes: -IOHEXOL 350 MG/ML 100ML INFUS..BTL IV ONE; -metoPROLOL tartRATE 1 MG/ML 5ML VIAL IV ONE
--- NOTE | 2024-06-18 08:33 | HMCSR ---
APPROVED REPORT EXAM: Two-dimensional and M-mode echocardiogram with Doppler and color Doppler. INDICATION ICD: R06.00 Dyspnea 2D Dimensions RVDd2.6 cmLVEF(%)45.0 (>50%)LVED Vol(simp.)129.0 mL IVSd1.4 (0.7-1.1cm)FS(%)33 %LVES Vol(simp.)63.0 mL LVDd4.0 (3.8-5.6cm)Ao Root(2D)3.2 (2.0-3.7cm)LVEF(%, simp.)51 % PWd1.3 (0.7-1.1cm)LVOT diam2.0 (1.8-2.4cm)LA ESV INDEX (BP)38.92 mL/m2 LVDs2.7 (2.5-4.0cm) Aortic Valve AoV Vmax1.4 m/Leonila Peak GR7.8 mmHgLVOT Vmax1.0 m/s AoV VTI0.3 mAo Mean GR4.4 mmHgLVOT VTI0.24 m PONCHO (VMAX)2.7 cm2AVA (VTI) 2.7 cm2 Mitral Valve MV E Vmax59.0 cm/sDECEL Pkls897 ms MV A Vmax96.5 cm/sP 1/2 T86 ms E/A ratio0.6MVA (PHT)2.6 cm2 MR Max PG83 mmHg TDI E/E' Kjwgzb85.8E/E' Lateral5.8 Pulmonary Valve PV Vmax0.8 m/sPV VTI0.19 mPV Mean GR2 mmHg PV Peak GR2.8 mmHg Left Ventricle Left ventricular cavity size is normal. Septal motion consistent with conduction abnormality. There i s mild concentric left ventricular hypertrophy. Sigmoid septum is present. LVEF is 45%. No left ventr icle thrombus noted on this study. Grade 1 diastolic dysfunction Right Ventricle The right ventricle is normal size. Cannot assess right ventricular systolic function. Atria The left atrium is mildly dilated. The right atrium size is normal. Aortic Valve Aortic valve is trileaflet. Aortic valve is mildly calcified but opens fairly well. Non coronary cusp is calcified and immobile. Trace aortic regurgitation. There is no aortic valvular stenosis. Mitral Valve Mitral valve leaflets are mildly sclerotic but open well. Mitral annular calcification is mild. Brandi l regurgitation is trace to mild. There is no mitral valve stenosis. Tricuspid Valve The tricuspid valve leaflets appear normal. There is trace tricuspid regurgitation. Pulmonic Valve Pulmonic valve is not well visualized. There is trace pulmonic valvular regurgitation. Great Vessels The aortic root is normal in size. IVC is not well visualized. Pericardium No pericardial effusion. Conclusion Left ventricular cavity size is normal. There is mild concentric left ventricular hypertrophy. Sigmoid septum is present. LVEF is 45%. Grade 1 diastolic dysfunction Septal motion consistent with conduction abnormality. The right ventricle is normal size. The left atrium is mildly dilated. Aortic valve is trileaflet. Aortic valve is mildly calcified but opens fairly well. Non coronary cusp is calcified and immobile. Trace aortic regurgitation. There is no aortic valvular stenosis. Mitral valve leaflets are mildly sclerotic but open well. Mitral annular calcification is mild. Mitral regurgitation is trace to mild. There is trace tricuspid regurgitation. There is trace pulmonic valvular regurgitation. The aortic root is normal in size. IVC is not well visualized. No pericardial effusion.
== END | disposition home or self-care (01) ==
LOC: SHCH 14:15
PROVIDERS: ATTEND Internal Medicine Cardiovascular Disease
DX: I34.0 Nonrheumatic mitral (valve) insufficiency (principal); I34.81 Nonrheumatic mitral (valve) annulus calcification; I51.7 Cardiomegaly; Q21.0 Ventricular septal defect; I51.89 Other ill-defined heart diseases; I72.8 Aneurysm of other specified arteries; I70.0 Atherosclerosis of aorta; R06.00 Dyspnea, unspecified
CPT/HCPCS: 93306